=== PATIENT | male | born 1990 | race Caucasian/White ===

== ENCOUNTER 2024-10-30 11:54 | Emergency (ER) | payer OTHER, SELFPAY ==
[2024-10-30 12:01] VITALS: BP 114/62; PULSE 73; RESP 16; TEMP 37.1; O2SAT 98; BMI 25.0
--- NOTE | 2024-10-30 12:10 | DI.RAD.S_ITS ---
PROCEDURE: XR WRIST LT MIN 3V INDICATIONS: pain TECHNIQUE: 3 views of the wrist were acquired. COMPARISON: None. FINDINGS: Bones: No fractures or dislocations. No suspicious bony lesions. Soft tissues: No suspicious soft tissue calcifications. IMPRESSION: No acute bony abnormality. Approved by: Sekou Madrid M.D. on 10/30/2024 at 12:22
--- NOTE | 2024-10-30 12:28 | ED_ITS ---
<Statement entered by Ulysses Byrd DO - 10/30/24 15:13> Dr. Byrd: I was immediately available in the department for consultation. I did not actually see the patient. HPI - Extremity Injury (Upper) General Chief Complaint: Extremity Injury, Upper Stated Complaint: L Wrist Injury Time Seen by Provider: 10/30/24 12:28 Source: patient Mode of arrival: Ambulatory History of Present Illness HPI narrative: Cleveland Madrid is a very pleasant 34-year-old male with no reported past medical history who presents to the emergency department for left wrist injury and pain x1 week. 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 Noticed pain developing on the radial aspect of his left wrist week ago however he tried to work through the pain in his only made it worse. He is tried to take ibuprofen and use Ramsey wrap but this did not improve the pain. He denies any direct trauma to the wrist or falling onto the wrist. Denies any numbness or tingling in the fingers. He is left-hand dominant. He does not want any opioid pain medications as he is in recovery. Related Data Allergies Allergy/AdvReac Type Severity Reaction Status Date / Time No Known Drug Allergies Allergy Verified 10/30/24 12:01 Review of Systems Review of Systems ROS Unobtainable: All systems reviewed & are unremarkable except as noted in HPI and below Patient History Social History Smoking Status: Current every day smoker Smoking Status: Current every day smoker tobacco type: vaping Exam Narrative Exam Narrative: GENERAL: 34 year old patient appears stated age. Well-developed patient, in no acute distress. HEAD: Atraumatic. Normocephalic. CARDIOVASCULAR: Regular rate. Strong radial pulses bilaterally. Brisk capillary refill all 10 fingers. RESPIRATORY: ?Nonlabored respirations. ?Speaking in clear, full sentences. EXTREMITIES: Tenderness to palpation of left radial wrist and subjective pain with active and passive flexion and extension of the wrist. No tenderness to palpation of ulnar aspect of wrist, dorsal or palmar hand or fingers. No skin changes or swelling. Negative Phalen's and Tinel's tests. NEURO: AOx3. ?Clear speech. ?Moves all 4 extremities appropriately. Sensation and strength intact in the distribution in the median, radial, ulnar nerves bilaterally. SKIN: No rash or erythema of visible areas Initial Vital Signs Initial Vital Signs: Vital Signs Temperature 98.7 F 10/30/24 12:01 Pulse Rate 73 10/30/24 12:01 Respiratory Rate 16 10/30/24 12:01 Blood Pressure 114/62 10/30/24 12:01 Pulse Oximetry 98 10/30/24 12:01 Oxygen Delivery Method Room Air 10/30/24 12:01 Course Orders Ordered: ED Orders 10/30/24 12:10 XR wrist LT min 3V Stat Discontinued Medications Ketorolac Tromethamine (Ketorolac 30 Mg/Ml Vial) 30 mg IM NOW ONE Stop: 10/30/24 12:41 Last Admin: 10/30/24 13:02 Dose: 30 mg Documented By: YOSEF Vital Signs Vital signs: Vital Signs - 8 hr 10/30/24 12:01 Temperature 98.7 F Pulse Rate 73 Respiratory Rate 16 Blood Pressure 114/62 Pulse Oximetry 98 Oxygen Delivery Method Room Air MDM - Extremity Injury (Upper) Medical Records Medical records narrative: none available Imaging Data Left Wrist X-Ray: Radiologist's Impression: PROCEDURE: XR WRIST LT MIN 3V INDICATIONS: pain TECHNIQUE: 3 views of the wrist were acquired. COMPARISON: None. FINDINGS: Bones: No fractures or dislocations. No suspicious bony lesions. Soft tissues: No suspicious soft tissue calcifications. IMPRESSION: No acute bony abnormality. MDM Narrative Medical decision making narrative: 34-year-old male with no reported past medical history who presents to the emergency department for left wrist injury and pain x1 week. Differential diagnosis includes but is not limited to left wrist tendinitis, overuse injury, gout, fracture, sprain, strain, etc. On exam the patient is in no acute distress, nontoxic-appearing, all vital signs within normal limits. Left hand is neurovascularly intact. He has subjective pain on the radial aspect of the left wrist with palpation and movement, no trauma, no snuffbox tenderness. Left wrist x-ray ordered, we will treat pain with Toradol. X-ray negative for acute bony abnormality. Suspect overuse injury/sprain of left wrist. Patient was placed into a Velcro left wrist splint and felt much better and more supported with a splint. Recommended ibuprofen/Tylenol, rice therapy, follow up with Orthopedics if pain persists. ED return precautions discussed. He is stable for discharge home. Discharge Plan Departure Patient Disposition: Home Clinical Impression: Sprain and strain of left wrist Instructions: DI for Wrist Sprain Activity Restrictions/Additional Instructions: Dear Mr. Madrid, Today you were evaluated for left wrist pain. Your x-ray shows no fractures or breaks in the bones. Your symptoms are most consistent with a sprain of the left wrist. Please use RICE therapy for your pain in addition to ibuprofen/acetaminophen. Rest the painful area. Ice the area of pain/swelling for at least 15 minutes, 4x a day. Compress the area of swelling using a brace, wrap, or splint if applied. Elevate the painful or swollen extremity by supporting it above the level of the heart with pillows when sitting or laying. Please take Ibuprofen (Motrin/Advil) or Acetaminophen (Tylenol) for pain. These are available over the counter. You may take Ibuprofen 600 mg every 8 hours with food for pain. You may also take Acetaminophen 650 mg every 4-6 hours for pain. Do not exceed 3000 mg of Tylenol a day as this can cause liver damage. Do not drink alcohol with either of these medications. If your symptoms do not improve in the next 1-2 weeks, please follow up with the orthopedic doctor as [facility] for further evaluation. Please follow up with your primary care doctor within the next 2-3 days for ER follow-up. (If you do not have a PCP you can call [phone]. ?to schedule an appointment with an [facility] Primary Care Provider) IF YOU DEVELOP ANY NEW OR WORSENING SYMPTOMS, RETURN TO THE ER! Please read the attached instructions, they highlight more specific treatments and interventions for you at home. Thank you for letting me participate in your care, Becky Ferreira PA-C Stand Alone Forms: Patient Portal/API/Survey, Work Release Note
[2024-10-30] MEDS: KETOROLAC 30 MG/ML VIAL IM (13:02)
== END 2024-10-30 14:00 | disposition home or self-care (01) ==
PROVIDERS: Emergency Provider Physician Assistant
DX: S63.502A Unspecified sprain of left wrist, initial encounter (principal); X50.0XXA Overexertion from strenuous movement or load, initial encounter
CPT/HCPCS: 73110; 96372; 99283; 99284; J1885

== ENCOUNTER 2025-09-20 10:42 | Emergency (ER) | payer OTHER, SELFPAY ==
--- NOTE | 2025-09-20 11:00 | EKG_ITS ---
[facility] [address] [place] [id number] Test Date: 2025-09-20 Pat Name: Cleveland Madrid Department: [facility] Room: Gender: Male Night Shift: GARRET : 1990 Requested By: Order Number: [id number] Reading MD: Michel Davis MD Measurements Intervals [place] Rate: 67 P: 52 IL: 144 QRS: 61 QRSD: 86 T: 53 QT: 392 QTc: 414 Interpretive Statements Normal sinus rhythm Electronically Signed On 09-20-2025 17:14:50 PST by Michel Davis MD
[2025-09-20 11:02] VITALS: BP 133/78; PULSE 74; RESP 18; TEMP 36.9; O2SAT 99; BMI 25.0
[2025-09-20 11:07] VITALS: PULSE 69; RESP 19; O2SAT 97
[2025-09-20 11:17] LABS: Add Manual Diff / Slide Review NO; Hematocrit 43.5 % (41-53); Hemoglobin 15.2 g/dL (13.5-17.5); Lymphocytes Absolute Auto 1700 /uL (1100-4500); Mean Corpuscular HGB Conc 35.0 % (30-36); Mean Corpuscular Hemoglobin 29.9 PG (26-34); Mean Corpuscular Volume 85.5 fL (80-100); Platelet Count 202 X10^3/uL (150-400)
[2025-09-20 11:20] LABS: INR 0.9 (0.9-1.3); Prothrombin Time 10.5 SECONDS (9.4-12.5)
[2025-09-20 11:23] LABS: PTT Partial Thromboplastin Tim 33 SECONDS (25.1-36.5)
[2025-09-20 11:26] LABS: Alanine Aminotransferase 16 IU/L (<50); Albumin 5.0 g/dL (3.5-5.0); Albumin Globulin Ratio 1.6 (1.0-2.8); Alkaline Phosphatase 85 U/L (38-126); Blood Urea Nitrogen 19 mg/dL (9-20); Calcium 9.3 mg/dL (8.4-10.2); Carbon Dioxide 26 mmol/L (22-32); Chloride 107 mmol/L (98-107); Estimated Glomerular Filt Rate > 60 mL/min (>60); Globulin 3.1 g/dL (1.7-4.1); Glucose 112 mg/dL (70-99); HEMOLYSIS 19 (0-50); Potassium 4.2 mmol/L (3.4-5.1); Sodium 143 mmol/L (137-145); Total Protein 8.1 g/dL (6.3-8.2)
[2025-09-20 11:30] VITALS: BP 104/66; PULSE 63; RESP 21; O2SAT 96
[2025-09-20 12:00] VITALS: BP 100/69; PULSE 57; RESP 23; O2SAT 95
--- NOTE | 2025-09-20 12:18 | ED_ITS ---
HPI - GI Bleed General Chief complaint: GI Bleed Stated complaint: puking blood Time Seen by Provider: 09/20/25 10:44 Source: patient, RN notes reviewed and old records reviewed Mode of arrival: Family Vehicle Limitations: no limitations History of Present Illness HPI Narrative: 35-year-old male no reported medical issues does not note he has a scope/EGD at around age 15 possibly for acid reflux. Patient presents with complaint of what he describes as coffee-ground emesis intermittently for the past 6 months or less. He states it has become a little bit more frequent over the last 2 weeks 3 or 4 times a week he states today he has felt little bit of bright red when he vomited that looked like strings. He has not appreciate any black or bloody stools although he states he does not really look. He states he does get abdominal discomfort usually he has a dull pain but we will sometimes get a stabbing pain and then emesis we will follow. He states nothing seems to make it worse occasionally food seems to exacerbate it but not always. He states he usually feels better after he vomits. He does not have any back or flank pain. No fevers or chills, no diaphoresis. He has a intermittent diarrhea and constipation, denies any urinary symptoms. Patient states he is not on any daily medications. He denies any prior surgeries but did have an EGD around age 15. He states he is not sure exactly what the outcome was or if he ended up taking medications but thinks it might have been for acid reflux. He chews tobacco, quit smoking tobacco several years ago, no alcohol for 12 years, uses marijuana no recreational drugs. Has a follow up appointment with Dr. Harman in November. Related Data Previous Rx's ?Medication ?Instructions ?Recorded omeprazole 40 mg capsule,delayed 40 mg PO DAILY #30 ca ps 09/20/25 release sucralfate 1 gram tablet (Carafate) 1 g PO QACHS #40 t abs 09/20/25 Allergies Allergy/AdvReac Type Severity Reaction Status Date / Time No Known Drug Allergies Allergy Verified 09/20/25 11:02 Review of Systems Review of Systems ROS Unobtainable: All systems reviewed & are unremarkable except as noted in HPI and below Patient History Smoking Status: Current every day smoker tobacco type: vaping Exam Narrative Exam Narrative: GENERAL: Alert and oriented x three, male in mild distress HEENT: Head normocephalic, atraumatic, EOMI, pupils reactive, face symmetric, moist mucous membranes NECK: Supple, full range of motion CARDIOVASCULAR: Regular rate and rhythm without murmurs, rubs or gallops. RESPIRATORY: Breath sounds equal bilaterally, no wheezes rales or rhonchi. ABDOMEN: Soft, nontender. Normoactive bowel sounds all 4 quadrants. No guarding or rebound, rigidity, no mass : No CVA tenderness EXTREMITIES: Normal range of motion, no clubbing or edema. Neurovascularly intact NEUROLOGICAL: Cranial nerves II through XII grossly intact. Moving all extremities SKIN: Warm, dry, no petechiae, no rashes or lesions. Initial Vital Signs Initial Vital Signs: Vital Signs Temperature 98.4 F 09/20/25 11:02 Pulse Rate 74 09/20/25 11:02 Respiratory Rate 18 09/20/25 11:02 Blood Pressure 133/78 09/20/25 11:02 Pulse Oximetry 99 09/20/25 11:02 Oxygen Delivery Method Room Air 09/20/25 11:02 Course Orders Ordered: Discontinued Medications Ondansetron HCl (Ondansetron 4 Mg/2 Ml Inj) 4 mg IV NOW PRN PRN Reason: Nausea And Vomiting Ondansetron HCl (Ondansetron 4 Mg Odt) 4 mg PO NOW PRN PRN Reason: Nausea And Vomiting Pantoprazole Sodium (Pantoprazole 40 Mg Vial) 40 mg IV NOW ONE Stop: 09/20/25 12:45 Last Admin: 09/20/25 12:56 Dose: 40 mg Documented By: YOSEF Vital Signs Vital signs: Vital Signs - 8 hr 09/20/25 11:02 09/20/25 11:07 09/20/25 11:30 Temperature 98.4 F Pulse Rate 74 69 Respiratory Rate 18 19 Blood Pressure 133/78 104/66 Pulse Oximetry 99 97 Oxygen Delivery Method Room Air Room Air 09/20/25 11:30 09/20/25 12:00 09/20/25 12:00 Temperature Pulse Rate 63 57 L Respiratory Rate 21 23 Blood Pressure 100/69 Pulse Oximetry 96 95 Oxygen Delivery Method 09/20/25 12:30 09/20/25 12:30 09/20/25 13:00 Temperature Pulse Rate 58 L Respiratory Rate 19 Blood Pressure 101/64 110/79 Pulse Oximetry 96 Oxygen Delivery Method 09/20/25 13:00 Temperature Pulse Rate 61 Respiratory Rate 18 Blood Pressure Pulse Oximetry 97 Oxygen Delivery Method MDM - GI Bleed Lab Data 09/20/25 10:45 09/20/25 10:45 Labs: Lab Results 09/20/25 09/20/25 Range/Units 10:45 11:15 WBC 6.4 (4.5-11.0) X10^3/uL RBC 5.08 (4.5-5.9) X10^6/uL Hgb 15.2 (13.5-17.5) g/dL Hct 43.5 (41-53) % MCV 85.5 (80-100) fL MCH 29.9 (26-34) PG MCHC 35.0 (30-36) % RDW 12.7 (11.6-14.8) % Plt Count 202 (150-400) X10^3/uL Neut % (Auto) 61.8 (50-75) % Lymph % (Auto) 26.1 (25-40) % [place] % (Auto) 7.5 (3-14) % Eos % (Auto) 3.7 (2-4) % Baso % (Auto) 0.9 (0-2) % Neut # (Auto) 4000 (0335-5968) /uL Lymph # (Auto) 1700 (3273-2725) /uL [place] # (Auto) 500 (0-900) /uL Eos # (Auto) 200 (0-450) /uL Baso # (Auto) 100 (0-100) /uL PT 10.5 (9.4-12.5) SECONDS INR 0.9 (0.9-1.3) APTT 33 (25.1-36.5) SECONDS Sodium 143 (137-145) mmol/L Potassium 4.2 (3.4-5.1) mmol/L Chloride 107 (98-107) mmol/L Carbon Dioxide 26 (22-32) mmol/L BUN 19 (9-20) mg/dL Creatinine 0.85 (0.66-1.25) mg/dL Estimated GFR > 60 (>60) mL/min BUN/Creatinine Ratio 22.4 H (6-22) Glucose 112 H (70-99) mg/dL Calcium 9.3 (8.4-10.2) mg/dL Total Bilirubin 0.4 (0.2-1.3) mg/dL AST 24 (17-59) IU/L ALT 16 (<50) IU/L Alkaline Phosphatase 85 (38-126) U/L Total Protein 8.1 (6.3-8.2) g/dL Albumin 5.0 (3.5-5.0) g/dL Globulin 3.1 (1.7-4.1) g/dL Albumin/Globulin Ratio 1.6 (1.0-2.8) Lipase 58 (23-300) U/L Blood Type O Positive Antibody Screen Negative Urine Dip Bedside Urine Glucose Negative Bedside Urine Bilirubin - Negative Bedside Urine Ketone - Negative Urine Specific Frederic 1.010 Bedside Urine Occult Blood - Negative Bedside Urine pH 6.0 Bedside Urine Protein - Negative Bedside Urine Urobilinogen - Negative Bedside Urine Nitrite - Negative Bedside Urine Leukocytes - Negative Esterase MDM Narrative Medical decision making narrative: EKG sinus rhythm rate of 67 [place] 144 QRS 86 QTC of [address]-elevation depression. Labs show normal white count, hemoglobin of 15.2 was 15.3 on April of 2025, platelets of 202, coags are negative, CP is negative glucose is 112 LFTs are normal. Lipase Point of care urine was negative. Patient received Protonix. Discussed with the patient we could obtain CT but I think he would benefit more from upper endoscopy. After discussion patient feels similar. We will reach out to Dr. Hernandez short set on up shortly. We will have patient start on Pepcid 40 mg daily and give a prescription for Carafate. Discussed return precautions if you are having persistent symptoms, worsening symptoms any fevers or other new changes he is to return for re-evaluation. Spoke with Dr. Hernandez, general surgery he is happy to see patient feels at they can get him in shortly for upper endoscopy agrees with the current plan with return precautions. Discharge Plan Departure Patient Disposition: Home Clinical Impression: Hematemesis Activity Restrictions/Additional Instructions: Follow up with General surgery for upper endoscopy, have included contact below. I have also reached out to Dr. Hernandez who is on-call today to help set up follow up. If you have not heard from the office by later today please reach out to them to set up an appointment. Take Pepcid 40 mg daily. You can try Carafate prior to meals 3-4 times daily. This medication coat the stomach. Prescription sent to [facility] in [place]. If you have increasing or persistent symptoms, fevers, new or worsening abdominal pain, new black or bloody stools, any lightheadedness or passing out or other new or concerning changes return to the emergency department. Prescriptions: New omeprazole 40 mg capsule,delayed release(DR/EC) 40 mg PO DAILY Qty: 30 0RF sucralfate [Carafate] 1 gram tablet 1 g PO QACHS Qty: 40 0RF Referrals: Joseph Hernandez MD [Physician, General Surgery] Miscellaneous,DoctorMD [Primary Care Provider, Medical] Stand Alone Forms: Patient Portal/API
[2025-09-20 12:30] VITALS: BP 101/64; PULSE 58; RESP 19; O2SAT 96
[2025-09-20 12:35] LABS: Lipase 58 U/L (23-300)
[2025-09-20] MEDS: PANTOPRAZOLE 40 MG VIAL IV (12:56)
[2025-09-20 13:00] VITALS: BP 110/79; PULSE 61; RESP 18; O2SAT 97
== END 2025-09-20 13:07 | disposition home or self-care (01) ==
PROVIDERS: Emergency Provider Emergency Medicine
DX: K92.0 Hematemesis (principal)
CPT/HCPCS: 36415; 80053; 81003; 83690; 85025; 85610; 85730; 86850; 86900; 86901; 93005; 93010; 96374; 99284; J2470